=== PATIENT | female | born 1950 | race Caucasian/White ===

== ENCOUNTER 2017-08-20 03:25 | Emergency (ER) | payer MEDICARE, BC ==
[~2017-08-20] VITALS: Ht 162.6 cm; Wt 79.0 kg
[~2017-08-20 03:25] MED LIST: FAMO20TA44 PO; OMEP20CA10 PO; SUCR1ORA2 PO
[2017-08-20] MEDS: LORazepam 2 mg/ml vial IV ONE (03:44)
[2017-08-20] MEDS: ondansetron/PF 4mg/2ml inj IV ONE (03:44)
[2017-08-20] MEDS: HYDROmorphone 1 mg/ml syringe IV PRN (03:46)
[2017-08-20] MEDS: HYDROmorphone inj. 0.5 MG/0.5 ML DISP.SYRIN ONE (03:46)
[2017-08-20 03:57] LABS: BASOPHILS % (AUTO) 0.6 % (0-1); EOSINOPHILS # (AUTO) 0.3 X10'3 (0-0.9); EOSINOPHILS % (AUTO) 4.4 % (0-6); HEMATOCRIT 33.8 % (35.0-45.0); HEMOGLOBIN 11.5 g/dl (12.0-16.0); LYMPHOCYTES % (AUTO) 30.2 % (21-51); MEAN CORPUSCULAR HEMOGLOBIN 29.9 PG (27.0-31.0); MEAN CORPUSCULAR VOLUME 87.9 FL (78-98); MEAN PLATELET VOLUME 8.7 FL (7.4-10.4); MONOCYTES # (AUTO) 0.5 X10'3 (0-0.9); MONOCYTES % (AUTO) 7.2 % (2-12); NEUTROPHILS # (AUTO) 3.8 X10'3 (1.8-7.7); NEUTROPHILS % (AUTO) 57.6 % (42-75); PLATELET COUNT 175 X10'3 (140-440); RED BLOOD COUNT 3.85 X10'6 (4.20-5.60); RED CELL DISTRIBUTION WIDTH 14.8 % (11.5-14.5); WHITE BLOOD COUNT 6.7 X10'3 (4.5-11.0)
[2017-08-20 03:59] LABS: OCCULT BLOOD STOOL POSITIVE (Neg)
[2017-08-20] MEDS: normal saline 1000ML IV soln IVB ONE (04:01)
[2017-08-20 04:07] LABS: INR 1.1 INR; PARTIAL THROMBOPLASTIN TIME 28 SECONDS (22-32); PROTHROMBIN TIME 11.5 SECONDS (9.0-12.0)
[2017-08-20 04:12] LABS: ALANINE AMINOTRANSFERASE 42 U/L (12-78); ALBUMIN 3.9 G/DL (3.4-5.0); ALBUMIN/GLOBULIN RATIO 1.3 (1.1-1.5); ALKALINE PHOSPHATASE 102 IU/L (46-116); ANION GAP 14 (8-16); ASPARTATE AMINO TRANSFERASE 26 U/L (10-37); BLOOD UREA NITROGEN 20 MG/DL (7-18); BUN/CREATININE RATIO 25.3 (6.6-38.0); CALCIUM 8.7 MG/DL (8.5-10.1); CHLORIDE 104 MMOL/L (99-107); CREATININE 0.79 MG/DL (0.40-0.90); GLUCOSE 202 MG/DL (70-104); MAGNESIUM 1.6 MG/DL (1.5-2.4); POTASSIUM 4.1 MMOL/L (3.5-5.1); SODIUM 139 MMOL/L (135-145); TOTAL CARBON DIOXIDE 21.4 MMOL/L (24-32); TOTAL PROTEIN 6.9 G/DL (6.4-8.2); eGFR 72 ML/MIN
[2017-08-20 05:10] VITALS: BP 146/55
[2017-08-20] MEDS ORDERED: OMEP40CA37 PO (20:51)
[2017-08-20] MEDS ORDERED: ATOR40TA PO (20:51)
[2017-08-20] MEDS ORDERED: GLIP5TAB13 PO (20:51)
[2017-08-20] MEDS ORDERED: OLME1TAB30 PO (20:51)
[2017-08-20] MEDS ORDERED: METF10002 PO (20:51)
[2017-08-20] MEDS ORDERED: LEVO100T PO (20:51)
[2017-08-20] MEDS ORDERED: CITA20TA19 PO (20:51)
[2017-08-20] MEDS ORDERED: INSU100V9 SQ (20:51)
== END 2017-08-20 05:12 | disposition home or self-care (01) ==
LOC: ER 03:26
DX: K62.5 Hemorrhage of anus and rectum (principal); R10.9 Unspecified abdominal pain; E03.9 Hypothyroidism, unspecified; E11.9 Type 2 diabetes mellitus without complications; F12.90 Cannabis use, unspecified, uncomplicated; Z90.710 Acquired absence of both cervix and uterus; Z88.8 Allergy status to other drugs, medicaments and biological substances; Z88.0 Allergy status to penicillin; Z79.82 Long term (current) use of aspirin
CPT/HCPCS: 36415; 74176; 80053; 82272; 83735; 85025; 85610; 85730; 86885; 86900; 86901; 96361; 96374; 96375; 99285; J1170; J2060; J2405; J7030; 99284

== ENCOUNTER 2017-08-20 12:29 | Inpatient (IN) | payer MEDICARE, BC ==
[~2017-08-20] VITALS: Ht 165.1 cm; Wt 79.0 kg
[2017-08-20] MEDS ORDERED: morphine 5 MG/ML injection IV ONE (15:10)
[2017-08-20] MEDS: normal saline 1000ml 1,000 ML IV SCH ×3 (15:38→19:10)
[2017-08-20 16:43] LABS: BASOPHILS % (AUTO) 0.6 % (0-1); EOSINOPHILS # (AUTO) 0.3 X10'3 (0-0.9); EOSINOPHILS % (AUTO) 6.7 % (0-6); HEMATOCRIT 28.5 % (35.0-45.0); HEMOGLOBIN 9.9 g/dl (12.0-16.0); LYMPHOCYTES # (AUTO) 1.2 X10'3 (1.1-4.8); MEAN CORPUSCULAR HEMOGLOBIN 30.4 PG (27.0-31.0); MEAN CORPUSCULAR HGB CONC 34.6 % (33.0-36.5); MEAN CORPUSCULAR VOLUME 87.9 FL (78-98); MEAN PLATELET VOLUME 8.3 FL (7.4-10.4); MONOCYTES # (AUTO) 0.3 X10'3 (0-0.9); MONOCYTES % (AUTO) 7.8 % (2-12); NEUTROPHILS # (AUTO) 2.5 X10'3 (1.8-7.7); NEUTROPHILS % (AUTO) 56.9 % (42-75); PLATELET COUNT 136 X10'3 (140-440); RED BLOOD COUNT 3.25 X10'6 (4.20-5.60); RED CELL DISTRIBUTION WIDTH 14.7 % (11.5-14.5); WHITE BLOOD COUNT 4.3 X10'3 (4.5-11.0)
[2017-08-20] MEDS ORDERED: magnesium hydroxide 30ml (MOM) UD suspension PO PRN (17:30)
[2017-08-20] MEDS ORDERED: acetaminophen 325mg tablet PO PRN (17:30)
[2017-08-20] MEDS ORDERED: mag hydrox/Alum hydrox/simeth 30ml oral suspension PO PRN (17:30)
[2017-08-20] MEDS ORDERED: ondansetron/PF 4mg/2ml inj IV PRN (17:30)
[2017-08-20 18:14] LABS: HEMATOCRIT 27.5 % (35.0-45.0); HEMOGLOBIN 9.4 g/dl (12.0-16.0); MEAN CORPUSCULAR HEMOGLOBIN 30.2 PG (27.0-31.0); MEAN CORPUSCULAR HGB CONC 34.2 % (33.0-36.5); MEAN CORPUSCULAR VOLUME 88.1 FL (78-98); MEAN PLATELET VOLUME 8.1 FL (7.4-10.4); PLATELET COUNT 135 X10'3 (140-440); RED BLOOD COUNT 3.12 X10'6 (4.20-5.60); RED CELL DISTRIBUTION WIDTH 15.3 % (11.5-14.5); WHITE BLOOD COUNT 4.5 X10'3 (4.5-11.0)
[2017-08-20 20:40] VITALS: BP 153/61
[2017-08-20] MEDS ORDERED: CITA20TA19 PO (20:51)
[2017-08-20] MEDS ORDERED: INSU100V9 SQ (20:51)
[2017-08-20] MEDS ORDERED: ATOR40TA PO (20:51)
[2017-08-20] MEDS ORDERED: OLME1TAB30 PO (20:51)
[2017-08-20] MEDS ORDERED: LEVO100T PO (20:51)
[2017-08-20] MEDS ORDERED: OMEP40CA37 PO (20:51)
[2017-08-20] MEDS ORDERED: GLIP5TAB13 PO (20:51)
[2017-08-20] MEDS ORDERED: METF10002 PO (20:51)
[2017-08-20] MEDS ORDERED: dextrose 50%-water 50ml dispensing syringe IV PRN ×2 (21:15)
[2017-08-20] MEDS ORDERED: dextrose ORAL solution 15 GM/59 ML bottle PO PRN ×2 (21:15)
[2017-08-20] MEDS ORDERED: morphine 2 MG/ML inj. syringe IV PRN (21:15)
[2017-08-20] MEDS ORDERED: insulin Lispro (HumaLOG) vial - multi-dose SQ SCH (21:15)
[2017-08-20] MEDS ORDERED: glucagon, human recombinant 1mg kit SUBCUT PRN (21:15)
[2017-08-20] MEDS ORDERED: MESSAGE TO PHARMACY PO ONE (21:15)
[2017-08-20] MEDS ORDERED: morphine 5 MG/ML injection IV PRN (21:27)
[2017-08-20 22:00] VITALS: BP 144/55
[2017-08-20 23:49] LABS: HEMATOCRIT 26.7 % (35.0-45.0); HEMOGLOBIN 9.1 g/dl (12.0-16.0); MEAN CORPUSCULAR HEMOGLOBIN 29.8 PG (27.0-31.0); MEAN CORPUSCULAR HGB CONC 34.1 % (33.0-36.5); MEAN CORPUSCULAR VOLUME 87.4 FL (78-98); MEAN PLATELET VOLUME 8.1 FL (7.4-10.4); PLATELET COUNT 139 X10'3 (140-440); RED BLOOD COUNT 3.06 X10'6 (4.20-5.60); RED CELL DISTRIBUTION WIDTH 14.9 % (11.5-14.5); WHITE BLOOD COUNT 4.7 X10'3 (4.5-11.0)
[2017-08-21] VITALS (10 sets, daily range): BP systolic 111–146; BP diastolic 35–70
[2017-08-21] MEDS: normal saline 1000ml 1,000 ML IV SCH ×2 (04:50→13:55)
[2017-08-21 05:28] LABS: BASOPHILS % (AUTO) 0.6 % (0-1); EOSINOPHILS # (AUTO) 0.2 X10'3 (0-0.9); EOSINOPHILS % (AUTO) 5.6 % (0-6); HEMATOCRIT 25.4 % (35.0-45.0); HEMOGLOBIN 8.9 g/dl (12.0-16.0); LYMPHOCYTES # (AUTO) 1.1 X10'3 (1.1-4.8); LYMPHOCYTES % (AUTO) 29.3 % (21-51); MEAN CORPUSCULAR HEMOGLOBIN 30.6 PG (27.0-31.0); MEAN CORPUSCULAR HGB CONC 34.9 % (33.0-36.5); MEAN CORPUSCULAR VOLUME 87.6 FL (78-98); MEAN PLATELET VOLUME 7.9 FL (7.4-10.4); MONOCYTES # (AUTO) 0.3 X10'3 (0-0.9); MONOCYTES % (AUTO) 8.6 % (2-12); NEUTROPHILS # (AUTO) 2.2 X10'3 (1.8-7.7); NEUTROPHILS % (AUTO) 55.9 % (42-75); PLATELET COUNT 121 X10'3 (140-440); RED BLOOD COUNT 2.91 X10'6 (4.20-5.60); RED CELL DISTRIBUTION WIDTH 15.4 % (11.5-14.5); WHITE BLOOD COUNT 3.9 X10'3 (4.5-11.0)
[2017-08-21 05:44] LABS: ALBUMIN 3.1 G/DL (3.4-5.0); ANION GAP 9 (8-16); BLOOD UREA NITROGEN 10 MG/DL (7-18); BUN/CREATININE RATIO 14.9 (6.6-38.0); CALCIUM 8.1 MG/DL (8.5-10.1); CHLORIDE 111 MMOL/L (99-107); CREATININE 0.67 MG/DL (0.40-0.90); GLUCOSE 119 MG/DL (70-104); POTASSIUM 3.9 MMOL/L (3.5-5.1); SODIUM 145 MMOL/L (135-145); TOTAL CARBON DIOXIDE 24.8 MMOL/L (24-32); eGFR 88 ML/MIN
[2017-08-21] MEDS: pantoprazole 40mg Tablet.DR PO SCH ×2 (07:54→19:38)
[2017-08-21] MEDS: levoTHYROXINE 100mcg tablet PO SCH (07:55)
[2017-08-21] MEDS: citalopram 20mg tablet PO SCH (07:55)
[2017-08-21] MEDS ORDERED: non-formulary drug (Omeprazole (Prilosec) 1 CAP) PO SCH (08:00)
[2017-08-21 11:46] LABS: HEMATOCRIT 26.6 % (35.0-45.0); HEMOGLOBIN 9.1 g/dl (12.0-16.0); MEAN CORPUSCULAR HEMOGLOBIN 30.1 PG (27.0-31.0); MEAN CORPUSCULAR HGB CONC 34.2 % (33.0-36.5); MEAN CORPUSCULAR VOLUME 88.1 FL (78-98); MEAN PLATELET VOLUME 7.7 FL (7.4-10.4); PLATELET COUNT 126 X10'3 (140-440); RED BLOOD COUNT 3.02 X10'6 (4.20-5.60); RED CELL DISTRIBUTION WIDTH 15.1 % (11.5-14.5); WHITE BLOOD COUNT 3.6 X10'3 (4.5-11.0)
[2017-08-21] MEDS ORDERED: normal saline 1000ml 1,000 ML IV SCH (15:52)
[2017-08-21] MEDS ORDERED: MIDAZolam 5mg/5ml vial IV PRN (15:55)
[2017-08-21] MEDS ORDERED: fentaNYL/PF 50MCG/1 ML 2ML syringe IV PRN (15:55)
[2017-08-21] MEDS ORDERED: simethicone 40mg/0.6ml oral drops 30ml MC ONE (15:55)
[2017-08-21] MEDS ORDERED: MIDAZolam 1mg/ml 10ml vial ONE (16:06)
[2017-08-21] MEDS ORDERED: fentaNYL/PF 50MCG/1 ML 2ML syringe ONE (16:06)
[2017-08-21 18:37] LABS: HEMATOCRIT 28.5 % (35.0-45.0); HEMOGLOBIN 9.7 g/dl (12.0-16.0); MEAN CORPUSCULAR HEMOGLOBIN 30.4 PG (27.0-31.0); MEAN CORPUSCULAR HGB CONC 34.1 % (33.0-36.5); MEAN CORPUSCULAR VOLUME 89.2 FL (78-98); MEAN PLATELET VOLUME 8.1 FL (7.4-10.4); PLATELET COUNT 129 X10'3 (140-440); RED BLOOD COUNT 3.19 X10'6 (4.20-5.60); RED CELL DISTRIBUTION WIDTH 15.4 % (11.5-14.5); WHITE BLOOD COUNT 3.9 X10'3 (4.5-11.0)
[2017-08-21] MEDS ORDERED: non-formulary drug (Atorvastatin Calcium* (Lipitor*) 1 TABLET) PO SCH (21:00)
[2017-08-21] MEDS: insulin glargine (Lantus) pen - multi-dose SQ SCH (21:00)
[2017-08-21] MEDS: temazepam 15mg capsule PO PRN (21:24)
[2017-08-21] MEDS: atorvastatin 20mg tablet PO SCH (21:24)
[2017-08-21] MEDS: HYDROcodone/acetaminophen 5mg/325mg tablet PO PRN (21:24)
[2017-08-21 23:41] LABS: HEMATOCRIT 26.5 % (35.0-45.0); HEMOGLOBIN 9.2 g/dl (12.0-16.0); MEAN CORPUSCULAR HEMOGLOBIN 30.1 PG (27.0-31.0); MEAN CORPUSCULAR HGB CONC 34.7 % (33.0-36.5); MEAN CORPUSCULAR VOLUME 86.8 FL (78-98); PLATELET COUNT 135 X10'3 (140-440); RED BLOOD COUNT 3.06 X10'6 (4.20-5.60); RED CELL DISTRIBUTION WIDTH 15.1 % (11.5-14.5); WHITE BLOOD COUNT 4.6 X10'3 (4.5-11.0)
[2017-08-22 03:00] VITALS: BP 141/58
[2017-08-22 05:53] LABS: BASOPHILS % (AUTO) 0.4 % (0-1); EOSINOPHILS # (AUTO) 0.1 X10'3 (0-0.9); EOSINOPHILS % (AUTO) 4.6 % (0-6); HEMATOCRIT 24.1 % (35.0-45.0); HEMOGLOBIN 8.6 g/dl (12.0-16.0); LYMPHOCYTES # (AUTO) 1.1 X10'3 (1.1-4.8); LYMPHOCYTES % (AUTO) 33.1 % (21-51); MEAN CORPUSCULAR HEMOGLOBIN 30.9 PG (27.0-31.0); MEAN CORPUSCULAR HGB CONC 35.6 % (33.0-36.5); MEAN CORPUSCULAR VOLUME 86.8 FL (78-98); MEAN PLATELET VOLUME 8.2 FL (7.4-10.4); MONOCYTES # (AUTO) 0.3 X10'3 (0-0.9); MONOCYTES % (AUTO) 9.2 % (2-12); NEUTROPHILS # (AUTO) 1.7 X10'3 (1.8-7.7); NEUTROPHILS % (AUTO) 52.7 % (42-75); PLATELET COUNT 109 X10'3 (140-440); RED BLOOD COUNT 2.77 X10'6 (4.20-5.60); RED CELL DISTRIBUTION WIDTH 14.3 % (11.5-14.5); WHITE BLOOD COUNT 3.2 X10'3 (4.5-11.0)
[2017-08-22 06:09] LABS: ALBUMIN 3.2 G/DL (3.4-5.0); ANION GAP 10 (8-16); BLOOD UREA NITROGEN 8 MG/DL (7-18); BUN/CREATININE RATIO 11.3 (6.6-38.0); CALCIUM 8.3 MG/DL (8.5-10.1); CHLORIDE 110 MMOL/L (99-107); CREATININE 0.71 MG/DL (0.40-0.90); GLUCOSE 150 MG/DL (70-104); POTASSIUM 3.7 MMOL/L (3.5-5.1); SODIUM 146 MMOL/L (135-145); eGFR 82 ML/MIN
[2017-08-22 06:35] VITALS: BP 134/59
[2017-08-22] MEDS ORDERED: AMLODIPIN PO SCH (08:00)
[2017-08-22] MEDS ORDERED: HCTHIAZID PO SCH (08:00)
[2017-08-22] MEDS ORDERED: TRIBENZOR PO SCH (08:00)
[2017-08-22] MEDS ORDERED: OLMESARTAN PO SCH (08:00)
[2017-08-22] MEDS ORDERED: [UNRECOGNIZED DRUG - OTHER] PO SCH (08:00)
[2017-08-22] MEDS: levoTHYROXINE 100mcg tablet PO SCH (10:06)
[2017-08-22] MEDS: pantoprazole 40mg Tablet.DR PO SCH ×2 (10:06→20:33)
[2017-08-22] MEDS: citalopram 20mg tablet PO SCH (10:06)
[2017-08-22 11:00] VITALS: BP 144/58
[2017-08-22 11:46] LABS: HEMATOCRIT 24.8 % (35.0-45.0); HEMOGLOBIN 8.8 g/dl (12.0-16.0); MEAN CORPUSCULAR HEMOGLOBIN 30.9 PG (27.0-31.0); MEAN CORPUSCULAR HGB CONC 35.3 % (33.0-36.5); MEAN CORPUSCULAR VOLUME 87.6 FL (78-98); MEAN PLATELET VOLUME 7.8 FL (7.4-10.4); PLATELET COUNT 122 X10'3 (140-440); RED BLOOD COUNT 2.83 X10'6 (4.20-5.60); RED CELL DISTRIBUTION WIDTH 15.3 % (11.5-14.5); WHITE BLOOD COUNT 3.2 X10'3 (4.5-11.0)
[2017-08-22 15:00] VITALS: BP 154/65
[2017-08-22 17:50] LABS: HEMATOCRIT 25.5 % (35.0-45.0); MEAN CORPUSCULAR HEMOGLOBIN 30.5 PG (27.0-31.0); MEAN CORPUSCULAR HGB CONC 35.2 % (33.0-36.5); MEAN CORPUSCULAR VOLUME 86.5 FL (78-98); MEAN PLATELET VOLUME 7.2 FL (7.4-10.4); PLATELET COUNT 128 X10'3 (140-440); RED BLOOD COUNT 2.94 X10'6 (4.20-5.60); WHITE BLOOD COUNT 3.6 X10'3 (4.5-11.0)
[2017-08-22 19:00] VITALS: BP 115/69
[2017-08-22] MEDS: atorvastatin 20mg tablet PO SCH (20:33)
[2017-08-22] MEDS: temazepam 15mg capsule PO PRN (20:33)
[2017-08-22] MEDS: normal saline 1000ml 1,000 ML IV SCH (20:34)
[2017-08-22] MEDS: insulin glargine (Lantus) pen - multi-dose SQ SCH (21:00)
[2017-08-22 22:00] VITALS: BP 144/53
[2017-08-22 23:24] LABS: HEMATOCRIT 24.9 % (35.0-45.0); HEMOGLOBIN 8.6 g/dl (12.0-16.0); MEAN CORPUSCULAR HEMOGLOBIN 30.5 PG (27.0-31.0); MEAN CORPUSCULAR HGB CONC 34.5 % (33.0-36.5); MEAN CORPUSCULAR VOLUME 88.4 FL (78-98); MEAN PLATELET VOLUME 7.3 FL (7.4-10.4); PLATELET COUNT 124 X10'3 (140-440); RED BLOOD COUNT 2.82 X10'6 (4.20-5.60); RED CELL DISTRIBUTION WIDTH 15.2 % (11.5-14.5); WHITE BLOOD COUNT 3.8 X10'3 (4.5-11.0)
[2017-08-23 02:00] VITALS: BP 135/53
[2017-08-23 05:36] LABS: BASOPHILS % (AUTO) 0.5 % (0-1); EOSINOPHILS # (AUTO) 0.2 X10'3 (0-0.9); EOSINOPHILS % (AUTO) 4.2 % (0-6); HEMATOCRIT 24.8 % (35.0-45.0); HEMOGLOBIN 8.6 g/dl (12.0-16.0); LYMPHOCYTES # (AUTO) 0.9 X10'3 (1.1-4.8); LYMPHOCYTES % (AUTO) 23.6 % (21-51); MEAN CORPUSCULAR HEMOGLOBIN 30.6 PG (27.0-31.0); MEAN CORPUSCULAR HGB CONC 34.8 % (33.0-36.5); MEAN CORPUSCULAR VOLUME 87.8 FL (78-98); MONOCYTES # (AUTO) 0.3 X10'3 (0-0.9); MONOCYTES % (AUTO) 8.1 % (2-12); NEUTROPHILS # (AUTO) 2.6 X10'3 (1.8-7.7); NEUTROPHILS % (AUTO) 63.6 % (42-75); PLATELET COUNT 113 X10'3 (140-440); RED BLOOD COUNT 2.83 X10'6 (4.20-5.60); RED CELL DISTRIBUTION WIDTH 15.2 % (11.5-14.5)
[2017-08-23 05:59] LABS: ALBUMIN 3.3 G/DL (3.4-5.0); ANION GAP 8 (8-16); BLOOD UREA NITROGEN 10 MG/DL (7-18); BUN/CREATININE RATIO 11.6 (6.6-38.0); CALCIUM 7.8 MG/DL (8.5-10.1); CHLORIDE 109 MMOL/L (99-107); CREATININE 0.86 MG/DL (0.40-0.90); GLUCOSE 170 MG/DL (70-104); POTASSIUM 3.7 MMOL/L (3.5-5.1); SODIUM 146 MMOL/L (135-145); eGFR 66 ML/MIN
[2017-08-23 06:30] VITALS: BP 145/49
[2017-08-23] MEDS: normal saline 1000ml 1,000 ML IV SCH (06:47)
[2017-08-23] MEDS: pantoprazole 40mg Tablet.DR PO SCH (08:34)
[2017-08-23] MEDS: citalopram 20mg tablet PO SCH (08:34)
[2017-08-23] MEDS: levoTHYROXINE 100mcg tablet PO SCH (08:34)
[2017-08-23] MEDS: HYDROcodone/acetaminophen 5mg/325mg tablet PO PRN (08:35)
[2017-08-23 11:00] VITALS: BP 153/56
[2017-08-23 15:00] VITALS: BP 142/65
== END 2017-08-23 17:00 | disposition home or self-care (01) | DRG 920 ==
LOC: ER 12:29 → ED HOLD 17:26 → PCU 3S 20:16
PROVIDERS: ADMIT Family Medicine; ATTEND Emergency Medicine
PROC: 0W3P8ZZ Control Bleeding in Gastrointestinal Tract, Via Natural or Artificial Opening Endoscopic (ICD-10-PCS; principal; 2017-08-21)
DX: K91.840 Postprocedural hemorrhage of a digestive system organ or structure following a digestive system procedure (principal); K92.1 Melena; E03.9 Hypothyroidism, unspecified; D62 Acute posthemorrhagic anemia; K21.9 Gastro-esophageal reflux disease without esophagitis; F12.90 Cannabis use, unspecified, uncomplicated; Y83.8 Other surgical procedures as the cause of abnormal reaction of the patient, or of later complication, without mention of misadventure at the time of the procedure; Z90.710 Acquired absence of both cervix and uterus; Z88.0 Allergy status to penicillin; Z88.8 Allergy status to other drugs, medicaments and biological substances; Y92.89 Other specified places as the place of occurrence of the external cause
CPT/HCPCS: 36415; 45382; 80048; 82948; 83036; 84443; 85025; 85027; 86885; 86900; 86901; 87070; 96374; 99285; A4620; G0500; J1815; J2250; J3010; J7030

== ENCOUNTER 2019-08-31 10:31 | Emergency (ER) | payer MEDICARE ==
[~2019-08-31] VITALS: Ht 165.1 cm; Wt 83.3 kg
[~2019-08-31 10:31] MED LIST changes: +ATOR40TA PO; +CITA20TA19 PO; -FAMO20TA44 PO; +GLIP5TAB13 PO; +INSU100V9 SQ; +LEVO100T PO; +METF-438 PO; +OLME1TAB30 PO; -OMEP20CA10 PO; +OMEP40CA13 PO; +PHEN118S47 PO; -SUCR1ORA2 PO
[2019-08-31] MEDS ORDERED: normal saline 1000ML IV soln IVB ONE (11:25)
[2019-08-31] MEDS ORDERED: methylPREDNISolone sod succ 125mg/2ml vial IV ONE (11:25)
[2019-08-31] MEDS ORDERED: ipratropium/albuterol 3ml nebule NEB ONE (11:25)
[2019-08-31] MEDS ORDERED: benzonatate 100mg capsule PO ONE (11:25)
[2019-08-31] MEDS ORDERED: proCHLORperazine 10 MG/2 ml inj IV ONE (11:50)
[2019-08-31 12:13] LABS: BASOPHILS % (AUTO) 0.9 % (0-1); EOSINOPHILS # (AUTO) 0.3 X10'3 (0-0.9); EOSINOPHILS % (AUTO) 7.2 % (0-6); HEMATOCRIT 35.1 % (35.0-45.0); HEMOGLOBIN 11.6 g/dl (12.0-16.0); LYMPHOCYTES # (AUTO) 0.7 X10'3 (1.1-4.8); LYMPHOCYTES % (AUTO) 17.5 % (21-51); MEAN CORPUSCULAR HEMOGLOBIN 26.1 PG (27.0-31.0); MEAN CORPUSCULAR HGB CONC 32.9 g/dL (33.0-36.5); MEAN CORPUSCULAR VOLUME 79.2 FL (78-98); MONOCYTES # (AUTO) 0.6 X10'3 (0-0.9); MONOCYTES % (AUTO) 14.4 % (2-12); NEUTROPHILS # (AUTO) 2.5 X10'3 (1.8-7.7); PLATELET COUNT 159 X10'3 (140-440); RED BLOOD COUNT 4.43 X10'6 (4.20-5.60); RED CELL DISTRIBUTION WIDTH 17.1 % (11.5-14.5); WHITE BLOOD COUNT 4.2 X10'3 (4.5-11.0)
[2019-08-31 12:35] LABS: ALANINE AMINOTRANSFERASE 32 U/L (12-78); ALBUMIN 3.8 G/DL (3.4-5.0); ALBUMIN/GLOBULIN RATIO 1.2 (1.1-1.5); ALKALINE PHOSPHATASE 96 IU/L (46-116); ANION GAP 7 (8-16); ASPARTATE AMINO TRANSFERASE 23 U/L (10-37); BILIRUBIN,TOTAL 1.6 MG/DL (0.1-1.0); BLOOD UREA NITROGEN 13 MG/DL (7-18); BUN/CREATININE RATIO 14.3 (6.6-38.0); CALCIUM 8.4 MG/DL (8.5-10.1); CHLORIDE 106 MMOL/L (99-107); CREATININE 0.91 MG/DL (0.40-0.90); GLUCOSE 84 MG/DL (70-104); POTASSIUM 3.2 MMOL/L (3.5-5.1); SODIUM 141 MMOL/L (135-145); TOTAL CARBON DIOXIDE 27.7 MMOL/L (24-32); TOTAL PROTEIN 7.1 G/DL (6.4-8.2); eGFR 61 ML/MIN
[2019-08-31] MEDS ORDERED: DEXA4TAB67 PO (12:47)
[2019-08-31 12:59] VITALS: BP 155/59
== END 2019-08-31 12:55 | disposition home or self-care (01) ==
LOC: ER 10:32
DX: R05 Cough (principal); R51 Headache; R50.9 Fever, unspecified; R11.2 Nausea with vomiting, unspecified; I10 Essential (primary) hypertension; J45.909 Unspecified asthma, uncomplicated; E11.9 Type 2 diabetes mellitus without complications; E03.9 Hypothyroidism, unspecified; F12.90 Cannabis use, unspecified, uncomplicated; Z85.9 Personal history of malignant neoplasm, unspecified; Z90.710 Acquired absence of both cervix and uterus; Z98.890 Other specified postprocedural states; Z72.89 Other problems related to lifestyle; Z88.6 Allergy status to analgesic agent; Z88.8 Allergy status to other drugs, medicaments and biological substances; Z79.4 Long term (current) use of insulin; Z79.899 Other long term (current) drug therapy
CPT/HCPCS: 36415; 71045; 80053; 83605; 83880; 84484; 85025; 87040; 87502; 87503; 94640; 96361; 96374; 96375; 99284; J0780; J2930; J7030; 94760

== ENCOUNTER 2019-11-12 16:23 | Emergency (ER) | payer MEDICARE ==
[~2019-11-12] VITALS: Ht 165.1 cm; Wt 84.1 kg
[~2019-11-12 16:23] MED LIST changes: +DEXA4TAB67 PO
[2019-11-12] MEDS ORDERED: normal saline 1000ML IV soln IVB ONE (16:30)
[2019-11-12 17:09] LABS: ALANINE AMINOTRANSFERASE 49 U/L (12-78); ALBUMIN 4.1 G/DL (3.4-5.0); ALBUMIN/GLOBULIN RATIO 1.2 (1.1-1.5); ALKALINE PHOSPHATASE 94 IU/L (46-116); ANION GAP 10 (8-16); ASPARTATE AMINO TRANSFERASE 37 U/L (10-37); BILIRUBIN,TOTAL 0.9 MG/DL (0.1-1.0); BLOOD UREA NITROGEN 19 MG/DL (7-18); BUN/CREATININE RATIO 16.2 (6.6-38.0); CALCIUM 9.3 MG/DL (8.5-10.1); CHLORIDE 106 MMOL/L (99-107); CREATININE 1.17 MG/DL (0.40-0.90); GLUCOSE 125 MG/DL (70-104); POTASSIUM 3.8 MMOL/L (3.5-5.1); SODIUM 142 MMOL/L (135-145); TOTAL PROTEIN 7.4 G/DL (6.4-8.2); eGFR 46 ML/MIN
[2019-11-12 17:12] LABS: BASOPHILS # (AUTO) 0.1 X10'3 (0-0.2); BASOPHILS % (AUTO) 1.1 % (0-1); EOSINOPHILS # (AUTO) 0.4 X10'3 (0-0.9); EOSINOPHILS % (AUTO) 6.6 % (0-6); HEMATOCRIT 36.5 % (35.0-45.0); LYMPHOCYTES # (AUTO) 1.5 X10'3 (1.1-4.8); LYMPHOCYTES % (AUTO) 26.8 % (21-51); MEAN CORPUSCULAR HEMOGLOBIN 27.4 PG (27.0-31.0); MEAN CORPUSCULAR HGB CONC 32.9 g/dL (33.0-36.5); MEAN CORPUSCULAR VOLUME 83.3 FL (78-98); MEAN PLATELET VOLUME 8.8 FL (7.4-10.4); MONOCYTES # (AUTO) 0.4 X10'3 (0-0.9); MONOCYTES % (AUTO) 7.7 % (2-12); NEUTROPHILS # (AUTO) 3.3 X10'3 (1.8-7.7); NEUTROPHILS % (AUTO) 57.8 % (42-75); PLATELET COUNT 152 X10'3 (140-440); RED BLOOD COUNT 4.39 X10'6 (4.20-5.60); RED CELL DISTRIBUTION WIDTH 18.8 % (11.5-14.5); WHITE BLOOD COUNT 5.7 X10'3 (4.5-11.0)
[2019-11-12] MEDS ORDERED: azithromycin/NS 500mg/250ml 250 ML IV ONE (17:20)
[2019-11-12] MEDS ORDERED: CefTRIAXone 2gm/D5W 50ml 50 ML IV ONE (17:20)
[2019-11-12] MEDS ORDERED: AZIT250T2 PO (17:37)
[2019-11-12] MEDS ORDERED: PRED20TA PO (17:37)
[2019-11-12 18:04] LABS: TOTAL CELLS COUNTED 100
[2019-11-12 18:05] LABS: ANISOCYTOSIS 2+; PLATELET ESTIMATE NORMAL; POLYCHROMASIA FEW
[2019-11-12 18:06] LABS: ELLIPTOCYTES FEW
--- NOTE | 2019-11-12 19:01 | NUR ---
AZITHROMYCIN HAS JUST BEEN STARTED. IV FLUIDS STILL INFUSING. PT TOLERATED WELL PT GIVEN SALTINE CRACKERS AND JUICE AT HER OWN REQUEST.
[2019-11-12 19:02] VITALS: BP 186/88
== END 2019-11-12 20:15 | disposition home or self-care (01) ==
LOC: ER 16:24
DX: J20.9 Acute bronchitis, unspecified (principal); Z20.828 Contact with and (suspected) exposure to other viral communicable diseases; R06.02 Shortness of breath; R05 Cough; J44.0 Chronic obstructive pulmonary disease with (acute) lower respiratory infection; M54.89 Other dorsalgia; I10 Essential (primary) hypertension; J45.909 Unspecified asthma, uncomplicated; E11.9 Type 2 diabetes mellitus without complications; E03.9 Hypothyroidism, unspecified; F12.90 Cannabis use, unspecified, uncomplicated; J44.1 Chronic obstructive pulmonary disease with (acute) exacerbation; Z87.01 Personal history of pneumonia (recurrent); Z87.440 Personal history of urinary (tract) infections; Z85.9 Personal history of malignant neoplasm, unspecified; Z90.710 Acquired absence of both cervix and uterus; Z98.890 Other specified postprocedural states; Z72.89 Other problems related to lifestyle; Z88.8 Allergy status to other drugs, medicaments and biological substances; Z79.2 Long term (current) use of antibiotics; Z79.4 Long term (current) use of insulin; Z79.899 Other long term (current) drug therapy
CPT/HCPCS: 36415; 71045; 80053; 84145; 85025; 87635; 93005; 96365; 96368; 99285; J0456; J0696; J7030

== ENCOUNTER 2022-09-29 19:11 | Emergency (ER) | payer BC, MEDICARE ==
[~2022-09-29] VITALS: Ht 165.1 cm; Wt 81.4 kg
[~2022-09-29 19:11] MED LIST changes: -OLME1TAB30 PO; -OMEP40CA13 PO; +OMEP40CA21 PO; +[UNRECOGNIZED DRUG - CODE] PO
[2022-09-29 19:48] VITALS: BP 140/71
[2022-09-29] MEDS ORDERED: HYDROcodone/acetaminophen 5mg/325mg tablet PO STA (19:57)
[2022-09-29] MEDS ORDERED: ondansetron/PF 4mg/2ml inj IV ONE (20:50)
[2022-09-29] MEDS ORDERED: morphine 4 MG/ML inj SYRINge IV ONE (20:50)
[2022-09-29] MEDS ORDERED: HYDROmorphone inj. 0.5 MG/0.5 ML DISP.SYRIN IV ONE (22:05)
[2022-09-29] MEDS ORDERED: fentaNYL/PF 50MCG/1 ML 2ML syringe IV ONE (22:15)
[2022-09-29] MEDS ORDERED: ketorolac tromethamine 15mg/ml inj. IV ONE (22:15)
[2022-09-30] MEDS ORDERED: morphine 4 MG/ML inj SYRINge IV ONE (00:05)
[2022-09-30] MEDS ORDERED: MORP15TA PO (00:08)
[2022-09-30] MEDS ORDERED: IBUP-860 PO (00:08)
[2022-09-30] MEDS ORDERED: bacitracin 15gm ointment TP ONE (00:20)
== END 2022-09-30 01:16 | disposition home or self-care (01) ==
LOC: ER 19:12
DX: S42.292A Other displaced fracture of upper end of left humerus, initial encounter for closed fracture (principal); S00.31XA Abrasion of nose, initial encounter; I10 Essential (primary) hypertension; J45.909 Unspecified asthma, uncomplicated; E11.9 Type 2 diabetes mellitus without complications; E03.9 Hypothyroidism, unspecified; Z90.49 Acquired absence of other specified parts of digestive tract; F12.10 Cannabis abuse, uncomplicated; Z88.8 Allergy status to other drugs, medicaments and biological substances; Z79.899 Other long term (current) drug therapy; Z88.5 Allergy status to narcotic agent; Z79.1 Long term (current) use of non-steroidal anti-inflammatories (NSAID); X58.XXXA Exposure to other specified factors, initial encounter; Y93.89 Activity, other specified; Y92.89 Other specified places as the place of occurrence of the external cause; Y99.8 Other external cause status
CPT/HCPCS: 70450; 70486; 72125; 73030; 96374; 96375; 99285; J1885; J2270; J2405; J3010; 99284